=== PATIENT | female | born 1985 | race Caucasian/White ===

== ENCOUNTER → 2016-12-29 | Outpatient (REF) | payer OTHER ==
[~2016-12-29] MED LIST: D 10CAP PO; E 101000 PO; MUCI3TAB PO; SPRI28TA PO; TURM500C3 PO
== END ==
LOC: M SFHCWAGY 17:09
PROVIDERS: ATTEND Nurse Practitioner Family
DX: Z11.3 Encounter for screening for infections with a predominantly sexual mode of transmission (principal)

== ENCOUNTER → 2017-01-03 | Outpatient (CLI) | payer OTHER ==
--- NOTE | 2017-01-03 11:01 | REP ---
PELVIC ULTRASOUND: Real-time sonographic evaluation of the pelvis is performed. Transabdominal and endovaginal technique utilized. COMPARISON: 01/26/2016. The bladder measures 9.7 x 10.1 x 7.8 cm. The uterus measures 7.3 x 3.6 x 4.5 cm. Endometrial thickness is normal at 3 mm. There is no endometrial fluid collection. The ovaries are normal in size and echotexture, right ovary measuring 3.0 x 1.7 x 2.3 cm and the left ovary 2.9 x 1.4 x 2.5 cm. There is no adnexal mass or free fluid. There is no evidence of ovarian torsion, with blood flow seen in each ovary with duplex Doppler evaluation, RI of the right ovary 0.59 and left ovary 0.50. IMPRESSION: Negative pelvic ultrasound.
== END ==
LOC: M WHC 08:29
PROVIDERS: ATTEND Nurse Practitioner Family
DX: R10.2 Pelvic and perineal pain (principal)

== ENCOUNTER → 2017-02-17 | Outpatient (REF) | payer OTHER | LOC: M SFHCWAGY 08:44 | PROVIDERS: ATTEND Nurse Practitioner Women's Health | DX: Z12.4 Encounter for screening for malignant neoplasm of cervix (principal) ==

== ENCOUNTER → 2017-10-11 | Outpatient (REF) | payer OTHER ==
[2017-10-11 12:06] LABS: CORTISOL AM 17.3 UG/DL (4.3-22.4)
[2017-10-11 12:25] LABS: ALBUMIN 3.7 GM/DL (3.2-5.2); ALBUMIN/GLOBULIN RATIO 1.23 (1.00-1.93); ALKALINE PHOSPHATASE 67 U/L (45-117); ALT/SGPT 39 U/L (12-78); ANION GAP 3 MEQ/L (8-16); AST/SGOT 30 U/L (7-37); BILIRUBIN,TOTAL 0.4 MG/DL (0.2-1.0); BLOOD UREA NITROGEN 10 MG/DL (7-18); C REACTIVE PROTEIN QUANTITATIV < 0.30 MG/DL (0.00-0.30); CALCIUM LEVEL 8.4 MG/DL (8.5-10.1); CARBON DIOXIDE LEVEL 31 MEQ/L (21-32); CHLORIDE LEVEL 108 MEQ/L (98-107); CREATININE FOR GFR 0.74 MG/DL (0.55-1.30); GLOMERULAR FILTRATION RATE > 60.0 (>60); GLUCOSE, FASTING 95 MG/DL (70-100); POTASSIUM SERUM 4.2 MEQ/L (3.5-5.1); SODIUM LEVEL 142 MEQ/L (136-145); TOTAL PROTEIN 6.7 GM/DL (6.4-8.2)
[2017-10-11 12:43] LABS: ERYTHROCYTE SEDIMENTATION RATE 3 mm/hr (0-20)
== END ==
LOC: M LAB REF 11:11
DX: R53.83 Other fatigue (principal)

== ENCOUNTER → 2017-10-16 | Outpatient (CLI) | payer OTHER | LOC: M RAD 11:33 | DX: M54.2 Cervicalgia (principal) | CPT/HCPCS: 76536 ==

== ENCOUNTER → 2018-02-09 | Outpatient (REF) | payer OTHER, MEDICAID ==
[2018-02-09 13:29] LABS: BASO % 0.5 % (0.0-1.0); EOS # 0.2 10^3/uL (0.0-0.50); EOS % 3.9 % (0.0-3.0); HEMATOCRIT 38.7 % (36.0-47.0); IMMATURE GRANULOCYTE % 0.2 % (0-3.0); LYMPH # 1.5 10^3/uL (1.5-4.5); LYMPH % 35.6 % (24.0-44.0); MEAN CORPUSCULAR HEMOGLOBIN 31.7 pg (27.0-33.0); MEAN CORPUSCULAR HGB CONC 33.6 g/dl (32.0-36.5); MEAN CORPUSCULAR VOLUME 94.4 fl (80.0-96.0); MONO # 0.3 10^3/uL (0.0-0.8); MONO % 7.7 % (0.0-5.0); NEUTROPHILS # 2.2 10^3/uL (1.8-7.7); NEUTROPHILS % 52.1 % (36.0-66.0); PLATELET COUNT, AUTOMATED 261 10^3/uL (150-450); RED CELL DISTRIBUTION WIDTH 11.9 % (11.5-14.5); WHITE BLOOD COUNT 4.1 10^3/uL (4.0-10.0)
[2018-02-09 14:08] LABS: ESTIMATED AVERAGE GLUCOSE 94 MG/DL (60-110); HEMOGLOBIN A1c 4.9 %
[2018-02-09 14:09] LABS: ALBUMIN 3.5 GM/DL (3.2-5.2); ALBUMIN/GLOBULIN RATIO 1.06 (1.00-1.93); ALKALINE PHOSPHATASE 39 U/L (45-117); ALT/SGPT 21 U/L (12-78); ANION GAP 7 MEQ/L (8-16); AST/SGOT 18 U/L (7-37); BILIRUBIN,TOTAL 0.4 MG/DL (0.2-1.0); BLOOD UREA NITROGEN 10 MG/DL (7-18); CALCIUM LEVEL 8.4 MG/DL (8.5-10.1); CARBON DIOXIDE LEVEL 25 MEQ/L (21-32); CHLORIDE LEVEL 109 MEQ/L (98-107); CHOLESTEROL LEVEL 155 MG/DL (<200); CREATININE FOR GFR 0.81 MG/DL (0.55-1.30); GLOMERULAR FILTRATION RATE > 60.0 (>60); GLUCOSE, FASTING 91 MG/DL (70-100); HDL CHOLESTEROL 54 MG/DL (>40); IRON (FE) 46 UG/DL (50-170); LDL CHOLESTEROL 86 MG/DL (<100); NON-HDL-C 101 MG/DL; POTASSIUM SERUM 4.9 MEQ/L (3.5-5.1); SODIUM LEVEL 141 MEQ/L (136-145); TOTAL 25(OH) VITAMIN D 30.2 NG/ML (30.0-100.0); TOTAL PROTEIN 6.8 GM/DL (6.4-8.2); TRIGLYCERIDES LEVEL 77 MG/DL (<150)
== END ==
LOC: M LAB REF 13:08
DX: R53.83 Other fatigue (principal)

== ENCOUNTER → 2018-02-23 | Outpatient (REF) | payer OTHER ==
[2018-02-23 14:26] LABS: HIV 1&2 SCREEN CENTAUR NEGATIVE (NEGATIVE)
[2018-02-23 14:43] LABS: CHLAMYDIA DNA AMPLIFICATION NEGATIVE (NEGATIVE); GC DNA AMPLIFICATION NEGATIVE (NEGATIVE)
[2018-02-27 15:09] LABS: HPV HYBRID CAPTURE II Negative (Negative)
== END ==
LOC: M SFHCWAGY 08:25
DX: Z11.3 Encounter for screening for infections with a predominantly sexual mode of transmission (principal); Z11.4 Encounter for screening for human immunodeficiency virus [HIV]
CPT/HCPCS: 36415

== ENCOUNTER 2018-09-07 06:32 | Emergency (ER) | payer OTHER ==
[~2018-09-07] VITALS: Ht 167.6 cm; Wt 82.3 kg
[~2018-09-07 06:32] MED LIST changes: -CODCAP26 PO; -MAGICMW SSP; -PROB1TAB2 PO; -ZITHTAB PO; -[UNRECOGNIZED DRUG - OTHER] PO; -colloidal silver PO
[2018-09-07] MEDS ORDERED: CODCAP26 PO (06:40)
[2018-09-07] MEDS ORDERED: [UNRECOGNIZED DRUG - OTHER] PO (06:40)
[2018-09-07] MEDS ORDERED: PROB1TAB2 PO (06:40)
[2018-09-07] MEDS ORDERED: colloidal silver PO ×2 (06:50→06:54)
[2018-09-07 08:01] LABS: INFLUENZA A AMPLIFICATION NEGATIVE (NEGATIVE); INFLUENZA B AMPLIFICATION NEGATIVE (NEGATIVE)
[2018-09-07] MEDS ORDERED: ZITHTAB PO (08:17)
[2018-09-07] MEDS ORDERED: MAGICMW SSP (08:18)
[2018-09-07 08:25] VITALS: BP 125/75
== END 2018-09-07 08:25 | disposition home or self-care (01) ==
LOC: M ED 06:32
DX: J01.90 Acute sinusitis, unspecified (principal); J02.9 Acute pharyngitis, unspecified; Z79.899 Other long term (current) drug therapy; Z88.0 Allergy status to penicillin

== ENCOUNTER → 2018-09-07 | Outpatient (REF) | payer OTHER ==
[~2018-09-07] MED LIST changes: +CODCAP26 PO; +MAGICMW SSP; +PROB1TAB2 PO; +ZITHTAB PO; +[UNRECOGNIZED DRUG - OTHER] PO; +colloidal silver PO
[2018-09-07 17:13] LABS: HIV 1&2 SCREEN CENTAUR NEGATIVE (NEGATIVE)
[2018-09-07 21:44] LABS: CHLAMYDIA DNA AMPLIFICATION NEGATIVE (NEGATIVE); GC DNA AMPLIFICATION NEGATIVE (NEGATIVE)
== END ==
LOC: M SFHCWAGY 14:40
PROVIDERS: ATTEND Nurse Practitioner Women's Health
DX: Z11.3 Encounter for screening for infections with a predominantly sexual mode of transmission (principal); Z11.4 Encounter for screening for human immunodeficiency virus [HIV]

== ENCOUNTER → 2018-10-10 | Outpatient (REF) | payer OTHER, MEDICAID ==
[~2018-10-10] MED LIST changes: +CODCAP26 PO; +MAGICMW SSP; +PROB1TAB2 PO; +ZITHTAB PO; +[UNRECOGNIZED DRUG - OTHER] PO; +colloidal silver PO
== END ==
LOC: M LAB REF 12:28
PROVIDERS: ATTEND Nurse Practitioner Family
DX: E04.1 Nontoxic single thyroid nodule (principal)

== ENCOUNTER → 2018-11-21 | Outpatient (REF) | payer OTHER, MEDICAID ==
[2018-11-21 12:43] LABS: BASO % 0.6 % (0.0-1.0); EOS # 0.1 10^3/uL (0.0-0.50); EOS % 2.7 % (0.0-3.0); HEMATOCRIT 40.6 % (36.0-47.0); HEMOGLOBIN 13.6 g/dl (12.0-15.5); LYMPH # 1.6 10^3/uL (1.5-4.5); LYMPH % 46.1 % (24.0-44.0); MEAN CORPUSCULAR HEMOGLOBIN 31.3 pg (27.0-33.0); MEAN CORPUSCULAR HGB CONC 33.5 g/dl (32.0-36.5); MEAN CORPUSCULAR VOLUME 93.3 fl (80.0-96.0); MONO # 0.4 10^3/uL (0.0-0.8); NEUTROPHILS # 1.3 10^3/uL (1.8-7.7); NEUTROPHILS % 39.3 % (36.0-66.0); PLATELET COUNT, AUTOMATED 243 10^3/uL (150-450); RED BLOOD COUNT 4.35 10^6/uL (4.00-5.40); WHITE BLOOD COUNT 3.4 10^3/uL (4.0-10.0)
[2018-11-21 12:51] LABS: ALBUMIN 4.1 GM/DL (3.2-5.2); ALT/SGPT 44 U/L (12-78); BILIRUBIN,TOTAL 0.9 MG/DL (0.2-1.0); BLOOD UREA NITROGEN 12 MG/DL (7-18); CALCIUM LEVEL 8.9 MG/DL (8.5-10.1); CARBON DIOXIDE LEVEL 28 MEQ/L (21-32); CHLORIDE LEVEL 105 MEQ/L (98-107); CHOLESTEROL LEVEL 167 MG/DL (<200); CHOLESTEROL RISK RATIO 2.737 (<5); CREATININE FOR GFR 0.76 MG/DL (0.55-1.30); GLOMERULAR FILTRATION RATE > 60.0 (>60); GLUCOSE, FASTING 87 MG/DL (70-100); HDL CHOLESTEROL 61 MG/DL (>40); LDL CHOLESTEROL 90 MG/DL (<100); NON-HDL-C 106 MG/DL; POTASSIUM SERUM 4.1 MEQ/L (3.5-5.1); SODIUM LEVEL 140 MEQ/L (136-145); TOTAL PROTEIN 7.4 GM/DL (6.4-8.2); TRIGLYCERIDES LEVEL 79 MG/DL (<150)
[2018-11-21 13:17] LABS: HEMOGLOBIN A1c 5.4 %
== END ==
LOC: M LAB REF 12:27
PROVIDERS: ATTEND Nurse Practitioner Family
DX: Z13.9 Encounter for screening, unspecified (principal)

== ENCOUNTER → 2019-05-03 | Outpatient (REF) | payer OTHER | LOC: M PLALAB 11:31 | PROVIDERS: ATTEND Nurse Practitioner Women's Health | DX: Z53.9 Procedure and treatment not carried out, unspecified reason (principal) ==

== ENCOUNTER → 2019-05-03 | Outpatient (CLI) | payer OTHER ==
[2019-05-03 17:40] LABS: CHLAMYDIA DNA AMPLIFICATION NEGATIVE (NEGATIVE); GC DNA AMPLIFICATION NEGATIVE (NEGATIVE)
== END ==
LOC: M PLALAB 11:48
PROVIDERS: ATTEND Nurse Practitioner Women's Health
DX: Z11.4 Encounter for screening for human immunodeficiency virus [HIV] (principal); Z11.3 Encounter for screening for infections with a predominantly sexual mode of transmission